=== PATIENT | male | born 1955 | race African-American/Black ===

== ENCOUNTER 2017-09-16 19:51 | Emergency (ER) | payer MEDICAID ==
--- NOTE | 2017-09-16 20:14 | EDM.PDOC ---
ED HPI GENERAL MEDICAL PROBLEM - General Chief Complaint: Upper Extremity Injury/Pain Stated Complaint: POSSIBLE BROKEN LT ARM Time Seen by Provider: 09/16/17 20:14 Source of Information: Reports: Patient - History of Present Illness INITIAL COMMENTS - FREE TEXT/NARRATIVE: HISTORY AND PHYSICAL: History of present illness: [62-year-old male visiting emergency department with chief complaint of left upper arm pain secondary to fall on ice. Patient states that approximately 1 hour ago he was walking and slipped on ice falling on his left side landing on a step. He reports immediate pain to his left upper arm. He also did graze the left side of his jaw. He states that he did not lose consciousness. He had no chest pain, palpitations, or shortness breath prior to or after the fall. He states that he just slipped on the ice. He has noticed some swelling he denies any problems with moving his fingers or his lower arm. He has no jaw pain or facial pain. He denies any pain to his shoulder. 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 On examination patient is able to move his hand. Neurovascular is intact. He has mild swelling to the left humerus. It is tender to palpation. Clavicle and shoulder are intact with no pain on palpation. 2145: X-ray results showed significant comminuted displaced angulated left humeral fracture. Lateral angulation. Half shaft width displacement laterally of the mid fracture fragment. Dr. Brown, orthopedic surgeon, [facility] was contacted and informed of findings. He stated that this fracture being mid shift could be splinted and the patient could be seen by him or someone else the following week. He recommended a coaptation splint. I talked to with him at length and he explained that by using a splint sometimes they do not need to do surgery unit on a significantly angulated fracture. Patient was informed of following in the splint was applied. Review of systems: As per history of present illness and below otherwise all systems reviewed and negative. Past medical history: As per history of present illness and as reviewed below otherwise noncontributory. Surgical history: As per history of present illness and as reviewed below otherwise noncontributory. Social history: No reported history of drug or alcohol abuse. Family history: As per history of present illness and as reviewed below otherwise noncontributory. Physical exam: HEENT: Atraumatic, normocephalic, pupils reactive, negative for conjunctival pallor or scleral icterus, mucous membranes moist, throat clear, neck supple, nontender, trachea midline. Lungs: Clear to auscultation, breath sounds equal bilaterally, chest nontender. Heart: S1S2, regular, negative for clicks, rubs, or JVD. Abdomen: Soft, nondistended, nontender. Negative for masses or hepatosplenomegaly. Negative for costovertebral tenderness. Pelvis: Stable nontender. Genitourinary: Deferred. Rectal: Deferred. Extremities: negative for cords or calf pain. Neurovascular unremarkable. Neuro: Awake, alert, oriented. Cranial nerves II through XII unremarkable. Cerebellum unremarkable. Motor and sensory unremarkable throughout. Exam nonfocal. Diagnostics: [Left humerus, left elbow, mandible x-ray] Therapeutics: [Toradol 60 mg IM x2] Impression: [] Plan: [Left humerus x-ray revealed a significant comminuted displaced angulated left humeral fracture. Lateral angulation. Halfshaft width displacement laterally of the mid fracture fragment. Dr. Brown, orthopedic surgeon, [facility] was contacted and made aware of the findings. He recommended a coaptation splint which was applied to the patient. He recommended having the patient following up with him or another orthopedic surgeon the following week. He also as above stated that often even these significant fractures as long as they're mid shaft do not need surgical intervention. Patient was informed of following and would like to follow-up here with Dr. Ramon, orthopedic surgeon. He was scheduled and discharged in good condition with a prescription for meloxicam. Of note the patient is 31 years sober and prefers not to have any tenderness narcotics. He was instructed to return in the interim if he had a new or worsening symptoms.] Leftr upper arm Pain Score (Numeric/FACES): 8 - Related Data Allergies Allergy/AdvReac Type Severity Reaction Status Date / Time No Known Allergies Allergy Verified 09/16/17 20:12 Home Meds: Home Meds . [No Known Home Meds] 09/16/17 [History] Review of Systems - Review of Systems Review Of Systems: See Below ED EXAM, GENERAL - Physical Exam Exam: See Below Course - Vital Signs Last Recorded V/S: Last Vital Signs Temp 96.9 F 09/16/17 20:12 Pulse 86 09/16/17 21:30 Resp 18 09/16/17 21:30 BP 117/69 09/16/17 21:30 Pulse Ox 98 09/16/17 21:30 - Orders/Labs/Meds Orders: Active Orders 24 hr Category Date Time Status EKG Documentation Completion [RC] STAT Care 09/16/17 21:40 Inactive Humerus Lt [CR] Stat Exams 09/16/17 20:26 Taken Mandible Less 4V [CR] Stat Exams 09/16/17 20:35 Taken Meds: Medications Discontinued Medications Generic Name Dose Route Start Last Admin Trade Name Freq PRN Reason Stop Dose Admin Ketorolac Tromethamine 60 mg 09/16/17 20:36 09/16/17 20:43 Toradol IM 09/16/17 20:37 60 mg ONETIME ONE Administration Ketorolac Tromethamine 60 mg 09/16/17 21:54 09/16/17 22:03 Toradol IM 09/16/17 21:55 60 mg ONETIME ONE Administration Departure - Departure Time of Disposition: 22:29 Disposition: Home, Self-Care 01 Condition: Good Clinical Impression: Fracture of humerus - Discharge Information Referrals: PCP,None [Primary Care Provider] - Forms: ED Department Discharge Additional Instructions: My general discharge The following information is given to patients seen in the emergency department who are being discharged to home. This information is to outline your options for follow-up care. We provide all patients seen in our emergency department with a follow-up referral. The need for follow-up, as well as the timing and circumstances, are variable depending upon the specifics of your emergency department visit. If you don't have a primary care physician on staff, we will provide you with a referral. We always advise you to contact your personal physician following an emergency department visit to inform them of the circumstance of the visit and for follow-up with them and/or the need for any referrals to a consulting specialist. The emergency department will also refer you to a specialist when appropriate. This referral assures that you have the opportunity for follow-up care with a specialist. All of these measure are taken in an effort to provide you with optimal care, which includes your follow-up. Under all circumstances we always encourage you to contact your private physician who remains a resource for coordinating your care. When calling for follow-up care, please make the office aware that this follow-up is from your recent emergency room visit. If for any reason you are refused follow-up, please contact the [facility] Emergency Department at and asked to speak to the emergency department charge nurse. [facility] [address], [address] [place] [address] - My Orders Last 24 Hours: My Active Orders 09/16/17 20:26 Humerus Lt [CR] Stat 09/16/17 20:35 Mandible Less 4V [CR] Stat 09/16/17 21:40 EKG Documentation Completion [RC] STAT - Assessment/Plan Last 24 Hours: My Active Orders 09/16/17 20:26 Humerus Lt [CR] Stat 09/16/17 20:35 Mandible Less 4V [CR] Stat 09/16/17 21:40 EKG Documentation Completion [RC] STAT
[2017-09-16] MEDS ORDERED: Ketorolac 60 MG/2 ML SDV IM ONE ×2 (20:36→21:54)
--- NOTE | 2017-09-17 16:34 | CR ---
EXAM DATE: 09/16/17 PATIENT'S AGE: 62 Patient: KARUNA YANCEY Facility: [place], [place] Site . Site : 1955 Study: XRay Extremity Left HUMERUS [id number]/15/2018 9:11:24 PM Ordering Physician: Sherwin Campuzano Final Report: Fell on ice. Three views of the left humerus. Findings: Significantly comminuted displaced angulated left humeral fracture. Lateral angulation. 1/2 shaft width displacement laterally of the mid fracture fragment. Dictated by She Snyder MD @ Sep 16 2017 9:32PM (Electronic Signature) Report Signed by Proxy. FRANCISCO
--- NOTE | 2017-09-17 16:35 | CR ---
EXAM DATE: 09/16/17 PATIENT'S AGE: 62 Patient: KARUNA YANCEY Facility: [place], [place] Site . Site : 1955 Study: XRay Facial MANDIBLE [id number]/15/2018 9:13:05 PM Ordering Physician: Sherwin Campuzano Final Report: Fall on ice 3 view mandible series. Findings : Normal alignment. No mandible fractures seen. Dictated by She Snyder MD @ Sep 16 2017 9:34PM (Electronic Signature) Report Signed by Proxy. [facility]
== END 2017-09-16 22:35 | disposition home or self-care (01) ==
LOC: MW.ED 19:51
DX: S42.352A Displaced comminuted fracture of shaft of humerus, left arm, initial encounter for closed fracture (principal); W00.9XXA Unspecified fall due to ice and snow, initial encounter
CPT/HCPCS: 70100; 73060; 96372; 99284; J1885; A4566